=== PATIENT | female | born 1970 | race Caucasian/White ===

== ENCOUNTER 2017-02-01 07:48 | Inpatient (IN) | payer OTHER ==
[~2017-02-01] VITALS: Ht 160 cm; Wt 81.3 kg
[2017-02-01] VITALS (8 sets, daily range): BP systolic 100–143; BP diastolic 53–71
[~2017-02-01 07:48] MED LIST: BACL10TA4 PO; CALC-943 PO; DIPH25CA PO; DIVA500T1 PO; FAMO-90 PO; METF1000 PO; METO25TE2 PO; MULT-1831 PO; RISP0.5T PO; TRAZ-289 PO; TYL3 PO; XALOS OP; [UNRECOGNIZED DRUG - CODE] IH; [UNRECOGNIZED DRUG - CODE] PO; [UNRECOGNIZED DRUG - CODE] TP
--- NOTE | 2017-02-01 07:55 | NUR ---
Patient ambulated to bed 3. RN evaluating patient at bedside.
--- NOTE | 2017-02-01 07:59 | NUR ---
Dr. Hoover evaluating patient at bedside.
[2017-02-01] MEDS ORDERED: NACL 0.9% 1,000 ML IV ONE (08:05)
[2017-02-01] MEDS ORDERED: ACTIVATED CHARCOAL 50 GM/240 ML TUBE PO ONE (08:05)
[2017-02-01] MEDS ORDERED: ACTIVATED CHARCOAL 50 GM/240 ML TUBE ONE (08:13)
--- NOTE | 2017-02-01 08:28 | NUR ---
POISON CONTROL [phone] JORDYN USUALLY WELL TOLERATED OD, MORESO IF THE PT TAKES ATIVAN REGULARLY. POSSIBLE O2 SUPPORT NEEDED. LAB MAYBE ASPIRIN, TYLENOL, AND CMP. FLUMAZANIL MAYBE NOT REQUIRED PT WILL ONLY BECOME MORE ALERT FOR ABOUT 1 HR THEN BECOME DROWSY AGAIN AND POSSIBLY VERY AGGITATED OR SEIZURES. OBSERVATION 4-6 HOURS MAYBE REQUIRED OR PT IS ABLE TO AMBULATE ON OWN.
[2017-02-01 08:37] LABS: BASOPHILS # (AUTO) 0.2 K/uL (0.00-0.22); BASOPHILS % (AUTO) 3.4 % (0.0-2.0); EOSINOPHILS # (AUTO) 0.3 K/uL (0-0.4); EOSINOPHILS % (AUTO) 4.8 % (0.0-4.0); HEMATOCRIT 37.6 % (36-48); HEMOGLOBIN 11.9 g/dL (12.0-16.0); LYMPHOCYTES # (AUTO) 0.8 K/uL (2.5-16.5); LYMPHOCYTES % (AUTO) 12.1 % (20.5-51.1); MEAN CORPUSCULAR HEMOGLOBIN 25 pg (27-31); MEAN CORPUSCULAR HGB CONC 32 g/dL (33-37); MEAN CORPUSCULAR VOLUME 80 fL (80-94); MONOCYTES # (AUTO) 0.3 K/uL (0.8-1.0); MONOCYTES % (AUTO) 4.5 % (1.7-9.3); NEUTROPHILS % (AUTO) 75.2 % (42.2-75.2); PLATELET COUNT (AUTO) 296 K/uL (140-450); RED CELL DISTRIBUTION WIDTH 17.7 % (11.6-13.7); WHITE BLOOD COUNT (AUTO) 6.6 K/uL (4.8-10.8)
[2017-02-01 08:41] LABS: ANION GAP 12.2 (8-16); CARBON DIOXIDE 25.6 mmol/L (21-32); CREATININE 0.6 mg/dL (0.6-1.3); POTASSIUM 3.8 mmol/L (3.5-5.1)
--- NOTE | 2017-02-01 08:45 | NUR ---
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 DENIES SI/HI AT THIS TIME. GCS OF 13. PT AAOX2 AT THIS TIME. HX TIA, BIPOLAR, SCHIZOPHRENIA, GASTRIC BYPASS 2011, AND FIBROMYALGIA. PT POOR HISTORIAN IN RELATION TO MEDS. 20G PLACED IN LEFT AND RIGHT FOREARMS. 1L OF FLUID IN EACH ARM. ACTIVATED CHARCOAL GIVEN INITIALLY PER DR. LORENZ. NGT IN PLACE. CXR NOTIIFED. PT RENUKA WELL.
[2017-02-01 08:46] LABS: PROTHROMBIN TIME 10.2 secs (10.8-13.4)
[2017-02-01 08:47] LABS: ALBUMIN 3.7 g/dL (3.4-5.0); TOTAL BILIRUBIN 0.5 mg/dL (0.0-1.0)
[2017-02-01 08:49] LABS: SALICYLATE < 2.8 mg/dL (2.8-20.0)
--- NOTE | 2017-02-01 08:50 | NUR ---
# 14 FR IN N OUT catheter utilizing sterile technique. Immediate return of 30 ml DARK YELLOW urine noted. Urine sample collected and sent to lab. Pt tolerated procedure.
--- NOTE | 2017-02-01 08:50 | NUR ---
# 14 FR NG tube placed to L nare. Placement checked by auscultation of instilled air into stomach and aspiration of gastric contents. Tubing taped in place to prevent dislodging. Patient tolerated PROCEDURE.
--- NOTE | 2017-02-01 08:53 | NUR ---
UNABLE TO RECONCILE MEDS PT TOO LETHARGIC AND PT'S IS NOT SURE WHAT PT IS TAKING NOW.
--- NOTE | 2017-02-01 09:05 | NUR ---
Dr. Brennan evaluating patient at bedside.
--- NOTE | 2017-02-01 09:10 | NUR ---
Patient will be admitted to care of DR. MARQUEZ. Admited to ICU. Will go to room 6. Belongings list completed. Report to ROMI SALINAS. DR. MARQUEZ AT BEDSIDE. ORDERS FOR AIRWAY MGMT AND CLOSE MONITORING.
[2017-02-01] MEDS ORDERED: ONDANSETRON 4 MG/2 ML VIAL IVP PRN (09:25)
[2017-02-01] MEDS ORDERED: ACETAMINOPHEN 325 MG TAB PO PRN (09:25)
--- NOTE | 2017-02-01 09:25 | NUR ---
ADMITTED FROM ER THIS 46 YR. OLD FEMALE PER NONI ACCPD. BY ER NURSES DUE TO ATIVAN OVERDOSE. UNABLE TO OBTAIN INFO FROM PT. DUE TO ALOC. DROWSY. FOLLOWS SIMPLE COMMANDS. GRAYSON BUT WEAKLY. NGT IN PLACE. CLAMPED. HL ON RT AND LT. FOREARMS.
[2017-02-01] MEDS: NACL 0.9% 1,000 ML IV SCH ×2 (10:06→22:46)
--- NOTE | 2017-02-01 10:15 | NUR ---
IV 0.9 NS STARTED AT 75 ML/HR VIA LEFT FOREARM IV SITE.
--- NOTE | 2017-02-01 10:30 | NUR ---
LEFT A MESSAGE WITH TO CALL BACK. NEEDS CLARIFICATION ON HOME MEDS. AND MORE INFO.
[2017-02-01 10:43] LABS: APPEARANCE,URINE CLEAR (CLEAR); BILIRUBIN,URINE NEGATIVE (NEGATIVE); BLOOD, URINE NEGATIVE (NEGATIVE); COLOR,URINE YELLOW (YELLOW); LEUKOCYTE ESTERASE ,URINE NEGATIVE (NEGATIVE); NITRITE, URINE NEGATIVE (NEGATIVE); UGLUCOSE NEGATIVE (NEGATIVE)
[2017-02-01 10:49] LABS: BARBITURATE, URINE NEG. ng/ml (NEG <=200); BENZODIAZEPINE, URINE NEG. ng/mL (NEG <=200); CANNABINOID, URINE NEG. ng/mL (NEG <=50); COCAINE, URINE NEG. ng/mL (NEG <=300); OPIATE, URINE POS. ng/mL (NEG <=2000); PHENCYCLIDINE SCREEN,URINE NEG. ng/mL (NEG <=25)
--- NOTE | 2017-02-01 11:30 | NUR ---
CALLED BACK. STATES HE IS ON HIS WAY TO AN APPT. DOES NOT HAVE PT'S MEDS. WITH HIM. REQUESTED TO BRING MEDS TO THE HOSPITAL SO WE CAN HAVE HOME MED LIST. ALSO CLAIMS THAT PT. ACCIDENTALLY TOOK THE ATIVAN. DENIES THAT PT. IS SUICIDAL. UPDATED ON PT'S CONDITION.
--- NOTE | 2017-02-01 11:40 | NUR ---
PER , PT. IS NOT ALLERGIC TO CODEINE. STATES PT. HAD HX GASTRIC BYPASS. SHE HAS BEEN TAKING TYLENOL WITH CODEINE WITHOUT ANY PROBLEMS.
--- NOTE | 2017-02-01 12:00 | NUR ---
STILL DROWSY BUT EASY TO AROUSE. DID NOT ANSWER QUESTIONS BUT ABLE TO REPOSITION SELF TO SIDES WHEN ASKED.
[2017-02-01] MEDS ORDERED: PROBIOTIC SCREEN 1 EA MISC MC PRN (14:30)
--- NOTE | 2017-02-01 16:10 | NUR ---
DR. MARQUEZ HERE TO SEE PT. PT PULLED NGT OUT. PER DR MARQUEZ, MAY LEAVE NGT OUT.
--- NOTE | 2017-02-01 16:15 | NUR ---
DOES NOT ENGAGE IN CONVERSATION BUT FOLLOWS SIMPLE COMMANDS. JUST GOES BACK TO SLEEP.
--- NOTE | 2017-02-01 17:15 | NUR ---
MORE AWAKE, CONVERSANT ADM. HISTORY COMPLETED.
--- NOTE | 2017-02-01 17:30 | NUR ---
PT. STATES SHE TOOK TOO MUCH ATIVAN ACCIDENTALLY. STATES SHE USUALLY SPRINKLES SOME POWDERED ATIVAN THAT BELONGS TO HER WHEELCHAIR BOUND DAUGHTER IN HER COFFEE. SHE THOUGHT THE CONTAINER WAS NOT FULL. DENIES BEING SUICIDAL.
[2017-02-01] MEDS ORDERED: PNEUMOCOCCAL VACCINE 23 MCG/0.5 ML VIAL IMVAC SCH (17:55)
--- NOTE | 2017-02-01 18:00 | NUR ---
USED THE BEDPAN, VOIDED 400 ML OF URINE WITHOUT DIFFICULTY.
--- NOTE | 2017-02-01 19:47 | NUR ---
RECEIVED REPORT FROM ANJELICA RODRIGUEZ/ROMI. PATIENT IS ASLEEP, EASILY AROUSED, SR ON THE MONITOR, ON IVF NS AT 75 ML/HR, INFUSING TO IV SITE ON LFA G#20. PATIENT WITH SALINE LOCK ON RFA ALSO, BOTH PATENT AND INTACT. DENIES PAIN AT THIS TIME, KEPT COMFORTABLE.
[2017-02-01] MEDS ORDERED: LATANOPROST 0.005% OP 2.5 ML BTL OP SCH (21:00)
--- NOTE | 2017-02-01 22:00 | NUR ---
PATIENT ASLEEP, EASILY AROUSED, VERBAL, DENIES PAIN, IVF CONTINUE.
[2017-02-02] VITALS (8 sets, daily range): BP systolic 112–149; BP diastolic 69–92
--- NOTE | 2017-02-02 | NUR ---
PATIENT ASLEEP, EASILY AROUSED, VS STABLE.
--- NOTE | 2017-02-02 02:00 | NUR ---
AMBULATED TO THE BATHROOM WITH STEADY GAIT, STAND BY ASSIST PROVIDED, PATIENT HAD A LARGE BOWEL MOVEMENT, ABLE TO CLEAN HERSELF, ORAL CARE PROVIDED, DENIES PAIN, INFORMED THAT CALLED AFTER 1930 LAST NIGHT AND THAT HE WILL COME AND SEE HER IN THE MORNING.
--- NOTE | 2017-02-02 04:15 | NUR ---
PATIENT SLEEPING COMFORTABLY.
[2017-02-02 05:49] LABS: BASOPHILS # (AUTO) 0.1 K/uL (0.00-0.22); BASOPHILS % (AUTO) 1.7 % (0.0-2.0); EOSINOPHILS # (AUTO) 0.3 K/uL (0-0.4); EOSINOPHILS % (AUTO) 3.1 % (0.0-4.0); HEMATOCRIT 36.1 % (36-48); HEMOGLOBIN 11.6 g/dL (12.0-16.0); LYMPHOCYTES % (AUTO) 12.4 % (20.5-51.1); MEAN CORPUSCULAR HEMOGLOBIN 26 pg (27-31); MEAN CORPUSCULAR HGB CONC 32 g/dL (33-37); MEAN CORPUSCULAR VOLUME 79 fL (80-94); MONOCYTES # (AUTO) 0.4 K/uL (0.8-1.0); NEUTROPHILS # (AUTO) 6.4 K/uL (1.8-7.7); NEUTROPHILS % (AUTO) 77.8 % (42.2-75.2); PLATELET COUNT (AUTO) 311 K/uL (140-450); RED BLOOD CELL COUNT(AUTO) 4.54 MIL/uL (4.20-5.40); RED CELL DISTRIBUTION WIDTH 17.2 % (11.6-13.7); WHITE BLOOD COUNT (AUTO) 8.2 K/uL (4.8-10.8)
--- NOTE | 2017-02-02 06:17 | NUR ---
AM CARE PROVIDED, KEPT CLEAN AND COMFORTABLE, PATIENT MORE AWAKE NOW AND ALERT, DENIES PAIN.
[2017-02-02 07:23] LABS: ANION GAP 11.6 (8-16); CARBON DIOXIDE 24.8 mmol/L (21-32); CREATININE 0.5 mg/dL (0.6-1.3); POTASSIUM 3.4 mmol/L (3.5-5.1)
--- NOTE | 2017-02-02 07:30 | NUR ---
RECEIVED PATIENT FROM ROMI LEE. PT SEEN AT BEDSIDE. PT IS AAOX4, DENIES ANY SUICIDAL IDEATIONS. PT ON ROOM AIR WITH NO S/S DISTRESS OR SOB. PT HAS LEFT FA IV 20G SALINE LOCKED AND RIGHT FA 20G IV RUNNING NS AT 75. IV'S ARE PATENT AND INTACT WITH NO S/S INFILTRATION OR REDNESS. 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 PT ASKING WHEN SHE CAN GO HOME. PT ABLE TO MOVE X4 EXTREMITIES. GLASSES NOTED IN PATIENT'S HAND. NOTIFIED PATIENT THAT DOCTOR MUST SEE HER FIRST AND ASSESS IF SHE CAN BE TRANSFERRED TO [facility] AT THIS TIME. SAFETY MEASURES CHECKED, CALL LIGHT LEFT AT BEDSIDE. WILL CONTINUE TO MONITOR.
--- NOTE | 2017-02-02 09:00 | NUR ---
RECEIVED CALL FROM PATIENT'S , SY VERN. UPDATED HIM ON PATIENT'S CONDITION. PER SY, HE WILL VISIT PT SOMETIME TODAY.
--- NOTE | 2017-02-02 09:49 | NUR ---
PT WANTS TO CALL HER . PROVIDED PT WITH PORTABLE PHONE.
--- NOTE | 2017-02-02 10:04 | NUR ---
PT WANTS TO LEAVE AMA. ASKED PATIENT IF THERE WAS ANY PARTICULAR REASON WHY SHE WANTED TO LEAVE. PT STATED SHE HAD NO PARTICULAR REASON AND WOULD LIKE TO CALL HER TO LEAVE. EXPLAINED TO PATIENT THAT IF SHE LEAVES NOW, SHE WOULD BE LEAVING AGAINST MEDICAL ADVICE; EXPLAINED THE RISKS ASSOCIATED WITH LEAVING AMA IN REGARDS TO HER DIAGNOSIS. PT STATED THAT IT WAS FINE.
--- NOTE | 2017-02-02 10:15 | NUR ---
PT REFUSING IVF AND BP. 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 AWARE.
--- NOTE | 2017-02-02 10:15 | NUR ---
PT UP TO BATHROOM. VOIDED X1. AMBULATORY.
--- NOTE | 2017-02-02 10:16 | NUR ---
RECEIVED CALLBACK FROM DR CHURCHILL. NOTIFIED DR CHURCHILL THAT PT WANTS TO GO AMA. STATED THAT HE STILL WANTS TO SEE PATIENT.
--- NOTE | 2017-02-02 10:30 | NUR ---
PT REACHED VIA PHONE AND ASKING WHERE SHE IS. PT TEARFUL AT THIS TIME. SAYS THAT SHE HAS A DAUGHTER IN A WHEELCHAIR THAT SHE MOSTLY TAKES CARE OF. PT STATED, "I DON'T KNOW HOW I MISTOOK ANOTHER MEDICATION. I DON'T KNOW HOW IT HAPPENED". PROVIDED EMOTIONAL SUPPORT FOR PATIENT. CALL LIGHT LEFT AT BEDSIDE. WILL CONTINUE TO MONITOR.
--- NOTE | 2017-02-02 10:31 | NUR ---
PT APOLOGIZING FOR "BEING MEAN". GAVE PATIENT EMOTIONAL SUPPORT. TISSUE BOX GIVEN. NOTIFIED PT TO USE CALL LIGHT IF SHE NEEDS RN. PT VERBALIZED UNDERSTANDING.
--- NOTE | 2017-02-02 10:42 | NUR ---
02/02/17 RD INITIAL ASSESSMENT COMPLETED PLEASE REFER TO NUTRITION ASSESSMENT UNDER CARE ACTIVITY FOR ESTIMATED NEEDS. RECOMMENDATIONS: 1. WHEN MEDICALLY ABLE INITIATE GROUND, HIGH PROTEIN DIET TOLERATED. 2. RD WILL FOLLOW UP IN 2-3 DAYS; HIGH RISK. NILA CARPIO RD
--- NOTE | 2017-02-02 11:18 | NUR ---
PT'S , SY AT BEDSIDE.
--- NOTE | 2017-02-02 11:42 | NUR ---
PT REQUESTING SOMETHING TO EAT. PAGED DR CHURCHILL TO GET DIET ORDER.
[2017-02-02] MEDS: NACL 0.9% 1,000 ML IV SCH (12:00)
--- NOTE | 2017-02-02 12:02 | NUR ---
DR CHURCHILL AT BEDSIDE TALKING WITH PATIENT. PER MD, PATIENT WILL BE DISCHARGED. NOTIFIED MD THAT POTASSIUM IS 3.4. REPLETE WITH 40MEQ POTASSIUM.
[2017-02-02] MEDS ORDERED: POTASSIUM CHLORIDE 20% 40 MEQ/15 ML UDC PO SCH (12:38)
--- NOTE | 2017-02-02 12:49 | NUR ---
PNA VAX AND POTASSIUM GIVEN. PT TEACHING GIVEN. PT VERBALIZED UNDERSTANDING. WILL CONTINUE TO MONITOR.
--- NOTE | 2017-02-02 13:05 | NUR ---
DISCHARGE TEACHING AND PACKET GIVEN TO PATIENT. PT VERBALIZED UNDERSTANDING. PT'S DAUGHTER AT BEDSIDE. IV'S REMOVED, WRIST BANDS REMOVED, PT BELONGINGS GIVEN. PT WALKED TO LOBBY AND D/C @ 2301.
== END 2017-02-02 13:05 | disposition home or self-care (01) | DRG 812 ==
LOC: MED 07:48 → MIC 09:17
PROVIDERS: ADMIT Internal Medicine Pulmonary Disease; ATTEND Internal Medicine Pulmonary Disease
DX: T42.4X1A Poisoning by benzodiazepines, accidental (unintentional), initial encounter (principal); G93.41 Metabolic encephalopathy; R56.9 Unspecified convulsions; F20.0 Paranoid schizophrenia; F31.9 Bipolar disorder, unspecified; J45.909 Unspecified asthma, uncomplicated; M79.7 Fibromyalgia; I10 Essential (primary) hypertension; E11.9 Type 2 diabetes mellitus without complications; Z98.84 Bariatric surgery status; Z86.73 Personal history of transient ischemic attack (TIA), and cerebral infarction without residual deficits; Z88.0 Allergy status to penicillin; Z91.041 Radiographic dye allergy status; Z88.6 Allergy status to analgesic agent; Z88.1 Allergy status to other antibiotic agents; Z91.040 Latex allergy status; Z88.8 Allergy status to other drugs, medicaments and biological substances; Z91.09 Other allergy status, other than to drugs and biological substances; Y92.89 Other specified places as the place of occurrence of the external cause; Z79.84 Long term (current) use of oral hypoglycemic drugs
CPT/HCPCS: 36415; 36600; 43753; 71010; 80048; 80053; 80305; 81003; 82803; 83880; 84484; 85025; 85610; 85730; 87081; 90732; 93005; 99291; C1758; G0480; G0482; J7030

== ENCOUNTER 2017-04-17 05:15 | Emergency (ER) | payer SELFPAY ==
[~2017-04-17] VITALS: Ht 154.9 cm; Wt 72.6 kg
[~2017-04-17 05:15] MED LIST changes: +CALC-1194 PO; -CALC-943 PO; -RISP0.5T PO; +RISP0.5T3 PO
[2017-04-17 05:20] VITALS: BP 131/85
--- NOTE | 2017-04-17 05:21 | NUR ---
47/F CAME IN W C/O 09/03 SHARP PAIN TO LEFT HIP RADIATING TO LEFT LEG, PT STATES "I WAS RUNNING AND MY DRESS CAUGHT ON MY FOOT AND I TWISTED MY LEG ON THE 2OTH". DENIES FALLING. PT REPORTS NUMBNESS TO LT LEG,FULL ROM W PAIN BUT "HURTS TO WALK", +PMSC. PMH: DEPRESSION, ASTHMA, GLAUCOMA, GASTRIC BYPASS. REPORTS TAKING TYLENOL W CODEINE AT 0200, REPORTS RELIEF.
--- NOTE | 2017-04-17 05:28 | NUR ---
PT TAKEN TO BED 11
--- NOTE | 2017-04-17 05:52 | NUR ---
Dr. Caballero evaluating patient at bedside.
[2017-04-17] MEDS ORDERED: ACETAMINOPHEN 325 MG TAB PO ONE (06:10)
[2017-04-17 07:12] VITALS: BP 127/94
== END 2017-04-17 07:12 | disposition home or self-care (01) ==
LOC: MED 05:15
DX: S73.102A Unspecified sprain of left hip, initial encounter (principal); S76.912A Strain of unspecified muscles, fascia and tendons at thigh level, left thigh, initial encounter; J45.909 Unspecified asthma, uncomplicated; E11.9 Type 2 diabetes mellitus without complications; I10 Essential (primary) hypertension; F32.9 Major depressive disorder, single episode, unspecified; Z79.899 Other long term (current) drug therapy; Z79.84 Long term (current) use of oral hypoglycemic drugs; Z88.0 Allergy status to penicillin; Z88.5 Allergy status to narcotic agent; Z88.8 Allergy status to other drugs, medicaments and biological substances; X58.XXXA Exposure to other specified factors, initial encounter; Y93.89 Activity, other specified; Y92.89 Other specified places as the place of occurrence of the external cause; Y99.8 Other external cause status
CPT/HCPCS: 99284

== ENCOUNTER 2017-09-06 01:35 | Emergency (ER) | payer OTHER ==
[~2017-09-06] VITALS: Ht 154.9 cm; Wt 74.0 kg
[2017-09-06 01:44] VITALS: BP 137/86
--- NOTE | 2017-09-06 01:47 | NUR ---
PT AMBULATED TO BED 3
--- NOTE | 2017-09-06 02:22 | NUR ---
came in with c/o abdominal pain, n/v and diarrhea since saturday.
[2017-09-06] MEDS ORDERED: ONDANSETRON 4 MG/2 ML VIAL IVP ONE (02:50)
--- NOTE | 2017-09-06 03:15 | NUR ---
per dr jesus do not give IV zofran will change to PO. awaiting orders
[2017-09-06] MEDS ORDERED: ONDANSETRON 4 MG ODT PO ONE (03:20)
[2017-09-06 03:23] LABS: BASOPHILS # (AUTO) 0.2 K/uL (0.00-0.22); BASOPHILS % (AUTO) 1.8 % (0.0-2.0); EOSINOPHILS # (AUTO) 0.4 K/uL (0-0.4); EOSINOPHILS % (AUTO) 4.3 % (0.0-4.0); HEMATOCRIT 38.9 % (36-48); HEMOGLOBIN 12.9 g/dL (12.0-16.0); LYMPHOCYTES # (AUTO) 1.3 K/uL (2.5-16.5); LYMPHOCYTES % (AUTO) 14.8 % (20.5-51.1); MEAN CORPUSCULAR HEMOGLOBIN 29 pg (27-31); MEAN CORPUSCULAR HGB CONC 33 g/dL (33-37); MEAN CORPUSCULAR VOLUME 87.3 fL (80-94); MONOCYTES # (AUTO) 0.7 K/uL (0.8-1.0); MONOCYTES % (AUTO) 7.4 % (1.7-9.3); NEUTROPHILS # (AUTO) 6.4 K/uL (1.8-7.7); NEUTROPHILS % (AUTO) 71.7 % (42.2-75.2); PLATELET COUNT (AUTO) 255 K/uL (140-450); RED BLOOD CELL COUNT(AUTO) 4.46 MIL/uL (4.20-5.40); RED CELL DISTRIBUTION WIDTH 15.5 % (11.6-13.7); WHITE BLOOD COUNT (AUTO) 8.9 K/uL (4.8-10.8)
[2017-09-06 03:25] LABS: APPEARANCE,URINE CLEAR (CLEAR); BILIRUBIN,URINE NEGATIVE (NEGATIVE); BLOOD, URINE NEGATIVE (NEGATIVE); COLOR,URINE YELLOW (YELLOW); LEUKOCYTE ESTERASE ,URINE NEGATIVE (NEGATIVE); NITRITE, URINE NEGATIVE (NEGATIVE); UGLUCOSE NEGATIVE (NEGATIVE)
[2017-09-06 03:38] LABS: ALBUMIN 3.3 g/dL (3.4-5.0); CARBON DIOXIDE 24.4 mmol/L (21-32); CREATININE 0.6 mg/dL (0.6-1.3); POTASSIUM 3.4 mmol/L (3.5-5.1); TOTAL BILIRUBIN 0.2 mg/dL (0.0-1.0)
[2017-09-06 04:03] VITALS: BP 128/83
== END 2017-09-06 04:03 | disposition home or self-care (01) ==
LOC: MED 01:35
DX: A08.4 Viral intestinal infection, unspecified (principal); J45.909 Unspecified asthma, uncomplicated; E11.9 Type 2 diabetes mellitus without complications; I10 Essential (primary) hypertension; Z90.49 Acquired absence of other specified parts of digestive tract; Z98.84 Bariatric surgery status; Z88.0 Allergy status to penicillin; Z88.8 Allergy status to other drugs, medicaments and biological substances; Z88.5 Allergy status to narcotic agent; Z91.040 Latex allergy status; Z88.1 Allergy status to other antibiotic agents
CPT/HCPCS: 36415; 80053; 81003; 83690; 85025; 99284; J2405; S0119

== ENCOUNTER 2017-11-25 17:13 | Emergency (ER) | payer OTHER ==
[~2017-11-25] VITALS: Ht 154.9 cm; Wt 748.9 kg
[2017-11-25 17:17] VITALS: BP 139/80
--- NOTE | 2017-11-25 17:38 | NUR ---
47 yo f with c/o non provoked costant left sided chest pain radiating to left upper shoudler x yesterday approx 0600 [address] [place]. Patient also report of SOB and dizziness. spo2 at 100% on RA. SKin is dry/color appriopriate for ethnicity. Clear speech with full sentences. RR are even and unlabored. LS clear throuout. Patient also reports of right side of head numbness. No facial/smile asymmetry. 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 gcs=15. monitors applied, VSS. ER MD made aware. will continue to monitior hx--asthma, anxiety, depression, TIA gastric bypass (2005)
[2017-11-25] MEDS ORDERED: ALPRAZolam 0.5 MG TAB PO SCH (18:25)
--- NOTE | 2017-11-25 18:30 | NUR ---
Patient being evaluated by physician at bedside.
[2017-11-25 18:52] LABS: BASOPHILS # (AUTO) 0.1 K/uL (0.00-0.22); BASOPHILS % (AUTO) 0.8 % (0.0-2.0); EOSINOPHILS # (AUTO) 0.4 K/uL (0-0.4); EOSINOPHILS % (AUTO) 5.8 % (0.0-4.0); HEMATOCRIT 38.7 % (36-48); HEMOGLOBIN 13.2 g/dL (12.0-16.0); LYMPHOCYTES # (AUTO) 1.6 K/uL (2.5-16.5); LYMPHOCYTES % (AUTO) 21.6 % (20.5-51.1); MEAN CORPUSCULAR HEMOGLOBIN 30 pg (27-31); MEAN CORPUSCULAR HGB CONC 34 g/dL (33-37); MEAN CORPUSCULAR VOLUME 88.4 fL (80-94); MONOCYTES # (AUTO) 0.5 K/uL (0.8-1.0); NEUTROPHILS # (AUTO) 4.9 K/uL (1.8-7.7); NEUTROPHILS % (AUTO) 64.8 % (42.2-75.2); PLATELET COUNT (AUTO) 261 K/uL (140-450); RED BLOOD CELL COUNT(AUTO) 4.38 MIL/uL (4.20-5.40); RED CELL DISTRIBUTION WIDTH 14.1 % (11.6-13.7); WHITE BLOOD COUNT (AUTO) 7.6 K/uL (4.8-10.8)
--- NOTE | 2017-11-25 18:52 | NUR ---
XRAY AT BEDSIDE
--- NOTE | 2017-11-25 19:10 | NUR ---
RECEIVED REPORT FROM PERCY NURSE.
[2017-11-25 19:13] LABS: PROTHROMBIN TIME 10.1 secs (10.8-13.4)
[2017-11-25 19:35] LABS: ANION GAP 11.9 (8-16); CREATININE 0.7 mg/dL (0.6-1.3); POTASSIUM 3.9 mmol/L (3.5-5.1); TOTAL BILIRUBIN 0.3 mg/dL (0.0-1.0)
[2017-11-25 19:36] LABS: ALBUMIN 3.3 g/dL (3.4-5.0)
--- NOTE | 2017-11-25 20:04 | NUR ---
PT RESTING COMFORTABLY IN BED, RR EVEN AND UNLABORED, VSS, ALL NEEDS MET AT THIS TIME.
--- NOTE | 2017-11-25 21:50 | NUR ---
PT SLEEPING COMFORTABLY, RR EVEN AND UNLABORED, VSS, ALL NEEDS MET AT THIS TIME.
[2017-11-25 23:02] VITALS: BP 110/70
--- NOTE | 2017-11-25 23:02 | NUR ---
Patient discharged with v/s stable. Written and verbal after care instructions given and explained. Patient verbalized understanding. Ambulatory with steady gait. All questions addressed prior to discharge. Advised to follow up with PMD.
== END 2017-11-25 23:05 | disposition home or self-care (01) ==
LOC: MED 17:13
DX: R06.4 Hyperventilation (principal); F41.9 Anxiety disorder, unspecified; J45.909 Unspecified asthma, uncomplicated; E11.9 Type 2 diabetes mellitus without complications; I10 Essential (primary) hypertension; Z98.84 Bariatric surgery status; Z88.0 Allergy status to penicillin; Z88.1 Allergy status to other antibiotic agents; Z88.8 Allergy status to other drugs, medicaments and biological substances; Z91.041 Radiographic dye allergy status; Z88.6 Allergy status to analgesic agent; Z91.040 Latex allergy status; Z79.899 Other long term (current) drug therapy
CPT/HCPCS: 36415; 71045; 80053; 83880; 84484; 85025; 85379; 85610; 85730; 93005; 99285

== ENCOUNTER 2019-03-06 19:09 | Emergency (ER) | payer OTHER ==
[~2019-03-06] VITALS: Ht 154.9 cm; Wt 61.2 kg
[~2019-03-06 19:09] MED LIST changes: -DIPH25CA PO; +DIPH25CA94 PO; -TRAZ-289 PO; +TRAZ100T99 PO
[2019-03-06 19:17] VITALS: BP 139/85
[2019-03-06] MEDS ORDERED: ALBUTEROL SULFATE/IPRATROPIU 3 ML SOL IH STA (21:53)
[2019-03-06] MEDS ORDERED: BENZONATATE 100 MG CAPLF PO STA (21:54)
[2019-03-06] MEDS ORDERED: predniSONE 20 MG TAB PO STA (22:56)
[2019-03-06 23:09] VITALS: BP 139/85
== END 2019-03-06 23:09 | disposition home or self-care (01) ==
LOC: MED 19:09
DX: J40 Bronchitis, not specified as acute or chronic (principal); J45.909 Unspecified asthma, uncomplicated; E11.9 Type 2 diabetes mellitus without complications; I10 Essential (primary) hypertension; Z79.84 Long term (current) use of oral hypoglycemic drugs; Z79.899 Other long term (current) drug therapy; Z88.0 Allergy status to penicillin; Z88.1 Allergy status to other antibiotic agents; Z88.5 Allergy status to narcotic agent; Z88.8 Allergy status to other drugs, medicaments and biological substances; Z91.040 Latex allergy status
CPT/HCPCS: 71045; 94640; 99283; J7620; 94644

== ENCOUNTER 2019-05-11 09:04 | Emergency (ER) | payer OTHER ==
[~2019-05-11] VITALS: Ht 157.5 cm; Wt 65.4 kg
[~2019-05-11 09:04] MED LIST changes: +ACET-503 PO; -TYL3 PO
[2019-05-11 09:24] VITALS: BP 163/98
--- NOTE | 2019-05-11 10:06 | NUR ---
49/F TO ED WITH L EAR PAIN S/P USING A Q TIP 4 DAYS AGO. PT REPORTS INSERTING Q TIP IN L EAR AND THEN NOTICED BLOOD UPON REMOVING Q TIP. PT REPORTING MILD HEARING LOSS FROM L EAR. DENIES ANY RECENT DISCHARGE/DRAINAGE. NO FOREIGN BODY SEEN ON ASSESSMENT. IN BED FOR MD SULLIVAN.
[2019-05-11 13:01] VITALS: BP 154/90
--- NOTE | 2019-05-11 13:01 | NUR ---
Patient discharged with v/s stable. Written and verbal after care instructions given and explained. Patient alert, oriented and verbalized understanding of instructions. Ambulatory with steady gait. All questions addressed prior to discharge. ID band removed. Patient advised to follow up with PMD. Rx of Tramadol 50mg, Motrin 800mg and Acetic Acid given. Patient educated on indication of medication including possible reaction and side effects. Opportunity to ask questions provided and answered.
== END 2019-05-11 13:01 | disposition home or self-care (01) ==
LOC: MED 09:04
DX: H60.92 Unspecified otitis externa, left ear (principal); J45.909 Unspecified asthma, uncomplicated; E11.9 Type 2 diabetes mellitus without complications; I10 Essential (primary) hypertension; Z86.69 Personal history of other diseases of the nervous system and sense organs; Z98.890 Other specified postprocedural states; Z79.899 Other long term (current) drug therapy; Z79.891 Long term (current) use of opiate analgesic; Z79.51 Long term (current) use of inhaled steroids; Z88.0 Allergy status to penicillin; Z88.8 Allergy status to other drugs, medicaments and biological substances; Z88.5 Allergy status to narcotic agent; Z88.6 Allergy status to analgesic agent; Z91.040 Latex allergy status; Z88.1 Allergy status to other antibiotic agents; Z91.048 Other nonmedicinal substance allergy status; Z91.018 Allergy to other foods
CPT/HCPCS: 99283

== ENCOUNTER 2019-06-27 23:26 | Emergency (ER) | payer OTHER ==
[~2019-06-27] VITALS: Ht 154.9 cm; Wt 52.2 kg
[2019-06-27 23:34] VITALS: BP 99/71
--- NOTE | 2019-06-27 23:37 | NUR ---
TO LOBBY A/W BED AMBULATORY
--- NOTE | 2019-06-27 23:50 | NUR ---
PT WHEELCHAIR ASSISTED TO BED
--- NOTE | 2019-06-27 23:56 | NUR ---
49/F PRESENTS TO ED WITH , C/O FEVER (103 AT HOME, AFEBRILE AT THIS TIME) AND LOWER ABD PAIN X5 DAYS. DENIES COUGH/CONGESTION, N/V/D, CONSTIPATION OR DYSURIA. PT REPORTS RASH/HIVES THROUGHOUT BODY, INCLUDING BLE, BUE, TRUNK, X1 HR. DENIES EXPOSURE TO NEW FOOD/DRINK/DETERGENT/NEW ALLERGENS. PT AWAKE AND ALERT, SKIN NORMAL COLOR WARM AND DRY, RR EVEN AND UNLABORED. HX ASTHMA, HTN, HLD, DM, GASTRIC BYPASS, CHOLECYSTECTOMY
[2019-06-28] MEDS ORDERED: NACL 0.9% 500 ML IV SCH (01:10)
--- NOTE | 2019-06-28 01:32 | NUR ---
EKG PERFORMED AT BEDSIDE
[2019-06-28 01:42] LABS: BASOPHILS % (AUTO) 0.1 % (0.0-2.0); EOSINOPHILS # (AUTO) 0.1 K/uL (0-0.4); EOSINOPHILS % (AUTO) 0.5 % (0.0-4.0); HEMATOCRIT 42.7 % (36-48); HEMOGLOBIN 14.1 g/dL (12.0-16.0); LYMPHOCYTES # (AUTO) 1.1 K/uL (2.5-16.5); MEAN CORPUSCULAR HEMOGLOBIN 28 pg (27-31); MEAN CORPUSCULAR HGB CONC 33 g/dL (33-37); MEAN CORPUSCULAR VOLUME 84.7 fL (80-94); MONOCYTES # (AUTO) 1.4 K/uL (0.8-1.0); MONOCYTES % (AUTO) 11.6 % (1.7-9.3); NEUTROPHILS # (AUTO) 9.7 K/uL (1.8-7.7); PLATELET COUNT (AUTO) 253 K/uL (140-450); RED BLOOD CELL COUNT(AUTO) 5.05 MIL/uL (4.20-5.40); RED CELL DISTRIBUTION WIDTH 15.7 % (11.6-13.7); WHITE BLOOD COUNT (AUTO) 12.3 K/uL (4.8-10.8)
[2019-06-28 01:58] LABS: ALBUMIN 2.3 g/dL (3.4-5.0); ANION GAP 10.6 (8-16); CARBON DIOXIDE 27.7 mmol/L (21-32); POTASSIUM 3.3 mmol/L (3.5-5.1); TOTAL BILIRUBIN 0.5 mg/dL (0.0-1.0)
[2019-06-28 01:59] LABS: NEUTROPHILS % (AUTO) 78.8 % (42.2-75.2)
[2019-06-28 02:11] LABS: APPEARANCE,URINE HAZY (CLEAR); BILIRUBIN,URINE NEGATIVE (NEGATIVE); BLOOD, URINE NEGATIVE (NEGATIVE); COLOR,URINE YELLOW (YELLOW); LEUKOCYTE ESTERASE ,URINE NEGATIVE (NEGATIVE); NITRITE, URINE NEGATIVE (NEGATIVE); PH,URINE 5.5 (5.0-9.0); UGLUCOSE NEGATIVE (NEGATIVE)
[2019-06-28 02:25] LABS: RBC,URINE 0-5 /HPF (0-5)
--- NOTE | 2019-06-28 03:13 | NUR ---
NO CHANGES FROM PREVIOUS ASSESSMENT. WILL CONTINUE TO MONITOR.
--- NOTE | 2019-06-28 03:18 | NUR ---
PT TAKEN TO CT
--- NOTE | 2019-06-28 04:20 | NUR ---
NO CHANGES FROM PREVIOUS ASSESS. VSS. WILL CONTINUE TO MONITOR. Patient discharged with v/s stable. Written and verbal after care instructions given and explained. Patient alert, oriented and verbalized understanding of instructions. All questions addressed prior to discharge. ID band removed. Patient advised to follow up with PMD. Rx of MACROBID, MINERAL OIL, MIRLAX, TRAMADOL given. Patient educated on indication of medication including possible reaction and side effects. Opportunity to ask questions provided and answered.
[2019-06-28 04:22] VITALS: BP 104/66
[2019-06-28] MEDS ORDERED: NITROFURANTOIN 100 MG CAP PO SCH (08:00)
--- NOTE | 2019-06-30 09:05 | NUR ---
Late entry. Confirmed with RN that 0.9 NS IV completed at 0230
== END 2019-06-28 04:22 | disposition home or self-care (01) ==
LOC: MED 23:26
DX: N39.0 Urinary tract infection, site not specified (principal); K59.00 Constipation, unspecified; J45.909 Unspecified asthma, uncomplicated; E11.9 Type 2 diabetes mellitus without complications; I10 Essential (primary) hypertension; Z88.0 Allergy status to penicillin; Z88.5 Allergy status to narcotic agent; Z88.1 Allergy status to other antibiotic agents; Z88.8 Allergy status to other drugs, medicaments and biological substances; Z91.040 Latex allergy status; Z90.49 Acquired absence of other specified parts of digestive tract; Z79.899 Other long term (current) drug therapy; Z79.84 Long term (current) use of oral hypoglycemic drugs; Z98.84 Bariatric surgery status
CPT/HCPCS: 36415; 71045; 74021; 80053; 81001; 81025; 83605; 85025; 87040; 87086; 87186; 93005; 99284; J7030; Q0092

== ENCOUNTER 2019-07-23 12:50 | Emergency (ER) | payer OTHER ==
[~2019-07-23] VITALS: Ht 154.9 cm; Wt 61.2 kg
[~2019-07-23 12:50] MED LIST changes: +TRAZ-471 PO; -TRAZ100T99 PO
[2019-07-23 12:52] VITALS: BP 132/87
--- NOTE | 2019-07-23 12:52 | NUR ---
Patient ambulated to bed 8. RN evaluating patient at bedside.
--- NOTE | 2019-07-23 13:18 | NUR ---
Dr. Roberts is evaluating patient at bedside.
[2019-07-23] MEDS: SILVER SULFADIAZINE 1% 50 GM JAR TP ONE (14:00)
--- NOTE | 2019-07-23 14:22 | NUR ---
Dr. Roberts is evaluating patient at bedside.
[2019-07-23 14:25] VITALS: BP 132/87
--- NOTE | 2019-07-23 14:25 | NUR ---
Patient discharged with last VS stable by Dr Roberts. Written and verbal after care instructions given and explained by Dr Roberts. Patient alert, oriented and verbalized understanding of instructions. Ambulatory with steady gait. All questions addressed prior to discharge by Dr Roberts. ID band removed by Dr Roberts. Patient advised to follow up with PMD by Dr Roberts. Rx of neosporin given by Dr Roberts. Patient educated on indication of medication including possible reaction and side effects by Dr Roberts. Opportunity to ask questions provided and answered by Dr Roberts.
== END 2019-07-23 14:25 | disposition home or self-care (01) ==
LOC: MED 12:50
DX: T23.101A Burn of first degree of right hand, unspecified site, initial encounter (principal); J45.909 Unspecified asthma, uncomplicated; I11.0 Hypertensive heart disease with heart failure; E11.9 Type 2 diabetes mellitus without complications; Z98.890 Other specified postprocedural states; Z98.0 Intestinal bypass and anastomosis status; Z79.899 Other long term (current) drug therapy; Z88.0 Allergy status to penicillin; Z88.1 Allergy status to other antibiotic agents; Z88.6 Allergy status to analgesic agent; Z91.040 Latex allergy status; Z88.8 Allergy status to other drugs, medicaments and biological substances; Z88.5 Allergy status to narcotic agent; X12.XXXA Contact with other hot fluids, initial encounter; Y93.89 Activity, other specified; Y92.89 Other specified places as the place of occurrence of the external cause; Y99.8 Other external cause status
CPT/HCPCS: 16000; 99284